=== PATIENT | male | born 1950 | race Caucasian/White ===

== ENCOUNTER → 2022-02-13 11:12 | Outpatient (CLI) | payer MEDICARE, SELFPAY ==
--- NOTE | 2022-02-13 11:16 | DI.RAD.S_ITS ---
PROCEDURE: XR KNEE RT 3V INDICATIONS: PAIN TECHNIQUE: 3 views of the knee were acquired. COMPARISON: None. FINDINGS: Bones: No fractures or dislocations. No suspicious bony lesions. Mild degenerative joint disease. Soft tissues: No joint effusion. No suspicious soft tissue calcifications. IMPRESSION: Mild degenerative joint disease and small knee joint effusion. Dictated by: Tank Pérez M.D. on 02/13/2022 at 17:14 Approved by: Tank Pérez M.D. on 02/13/2022 at 17:14
--- NOTE | 2022-02-13 11:16 | DI.RAD.S_ITS ---
PROCEDURE: XR KNEE LT 3V INDICATIONS: PAIN TECHNIQUE: 3 views of the knee were acquired. COMPARISON: [facility], CR, XR KNEE RT 3V, 02/13/2022, 11:08. FINDINGS: Bones: No fractures or dislocations. Mild tricompartmental osteoarthritis is seen. No suspicious bony lesions. Soft tissues: No joint effusion. No suspicious soft tissue calcifications. IMPRESSION: Mild tricompartmental osteoarthritis. No left knee fracture or dislocation. No significant joint effusion. Dictated by: Wilbur Wing M.D. on 02/13/2022 at 12:05 Approved by: Wilbur Wing M.D. on 02/13/2022 at 12:06
== END ==
PROVIDERS: PCP Student in an Organized Health Care Education/Training Program; Referring Provider Family Medicine; Visit Provider Family Medicine
DX: M25.561 Pain in right knee (principal); M25.562 Pain in left knee; M17.0 Bilateral primary osteoarthritis of knee; M25.461 Effusion, right knee
CPT/HCPCS: 73562

== ENCOUNTER → 2022-03-05 11:00 | Outpatient (CLI) | payer MEDICARE, SELFPAY | PROVIDERS: PCP Student in an Organized Health Care Education/Training Program; Referring Provider Student in an Organized Health Care Education/Training Program; Visit Provider Student in an Organized Health Care Education/Training Program | DX: Z53.20 Procedure and treatment not carried out because of patient's decision for unspecified reasons (principal) ==

== ENCOUNTER → 2023-03-07 14:14 | Outpatient (CLI) | payer MEDICARE, SELFPAY ==
--- NOTE | 2023-03-07 | DI.ECHO.S_ITS ---
[facility]---------+ [facility] +---------+ : : [address] : [place] : : : : [id number] : : : : Phone: [phone]+ Echocardiogram Report + + :Name: LUPE DOUGHERTY Study Date: 03/07/2023 Height: 73 in : :[facility] ReadingLocation: Weight: 230 lb : : Gender: Male BSA: 2.3 m2 : :: 1950 Age: 72 yrs BP: 129/82 mmHg: :Reason For Study: ANEURYSM OF THE ASCENDING AORTA : :Ordering Physician: SYLVESTER, : :GAIL Performed By: Mónica Srivastava : :Referring: GAIL PHAN : + + Interpretation Summary 1) Normal left ventricular thickness, size, wall motion, and systolic function (EF 55-60%). 2) Normal right ventricular size and function. 3) No significant valvular abnormalities. 4) The ascending aorta is mildly enlarged at 4.2cm. 5) No prior Echo available for comparison. Procedure: A two-dimensional transthoracic echocardiogram with color flow and Doppler was performed. The study quality was technically adequate. There is no prior echocardiogram noted for this patient. The patient was in sinus rhythm with heart rates between 59-69 bpm during the exam. Left Ventricle: The left ventricle is normal in size and wall thickness. The ejection fraction is estimated to be 55-60%. Left ventricular systolic function appears normal without focal wall motion abnormalities. Diastolic parameters suggest a relaxation abnormality of the left ventricle, consistent with probable normal filling pressures. Right Ventricle: The right ventricle is normal in size and function. Atria: The left atrial size is normal. Right atrial size is normal. There is no Doppler evidence for an interatrial shunt. Mitral Valve: The mitral valve is normal in structure and function. There is no mitral regurgitation noted. Aortic Valve: The aortic valve is trileaflet. There is mild aortic valve sclerosis. There is no aortic valve stenosis. No aortic regurgitation is present. Tricuspid Valve: The tricuspid valve is normal in structure and function. There is trace tricuspid regurgitation. Pulmonary artery pressures cannot be estimated because of the lack of a measurable TR jet velocity. Pulmonic Valve: The pulmonic valve is not well seen, but is grossly normal. There is no pulmonic valvular regurgitation. Great Vessels: The aortic root is normal size. The ascending aorta is mildly enlarged. The inferior vena cava was not well visualized. Pericardium/ Pleura There is no pericardial effusion. There is no pleural effusion. MMode/2D Measurements & Calculations LVIDd: 4.7 cm LVOT diam: 2.5 cm LVIDs: 3.2 cm Ao root diam: 3.9 cm FS: 31.5 % asc Aorta Diam: 4.2 cm IVSd: 0.94 cm Ao Arch Diam (Prox Trans): 3.3 cm LVPWd: 1.1 cm LV parikh. diameter/BSA (cm/m^2): 2.1 LV sys. diameter/BSA (cm/m^2): 1.4 LA A2 area: 22.0 cm2 RA long axis: 5.6 cm LA A4 area: 17.3 cm2 RA area: 15.1 cm2 LA length (vol): 5.5 cm RA vol: 34.4 ml LA vol: 58.5 ml RA : 15.1 ml/m2 LA vol index: 25.6 ml/m2 RVD1 (basal): 3.6 cm RVD2 (mid): 2.7 cm TAPSE: 2.0 cm Doppler Measurements & Calculations Ao V2 max: 143.2 cm/sec LVOT Max Keenan: 99.6 cm/sec Ao V2 mean: 93.5 cm/sec LV V1 max P.0 mmHg Ao max P.2 mmHg LV V1 VTI: 21.0 cm Ao mean P.0 mmHg ETIENNE(I,D): 3.7 cm2 Ao V2 VTI: 27.7 cm ETIENNE(V,D): 3.4 cm2 sev ratio: 0.76 ETIENNE indexed to BSA (cm^2/m^2): 1.6 MV E max keenan: 70.6 cm/sec PA V2 max: 103.2 cm/sec MV A max keenan: 76.8 cm/sec PA V2 mean: 77.8 cm/sec MV E/A: 0.92 PA mean P.6 mmHg Med Peak E' Keenan: 5.3 cm/sec PA pr(Accel): 49.9 mmHg E/E' med: 13.2 Lat Peak E' Keenan: 9.2 cm/sec E/E' lat: 7.6 E/e' average: 10.4 MV dec time: 0.29 sec SV(LVOT): 101.7 ml Reading Physician:03:40 PM
== END ==
PROVIDERS: PCP Student in an Organized Health Care Education/Training Program; Referring Provider Student in an Organized Health Care Education/Training Program; Visit Provider Student in an Organized Health Care Education/Training Program
DX: I71.21 Aneurysm of the ascending aorta, without rupture (principal); I35.8 Other nonrheumatic aortic valve disorders; I77.89 Other specified disorders of arteries and arterioles
CPT/HCPCS: 93306